=== PATIENT | female | born 1965 | race Two or more races ===

== ENCOUNTER 2025-02-03 20:23 | Inpatient (IN) | payer MEDICAID, OTHER ==
[~2025-02-03] VITALS: Ht 160 cm; Wt 55.8 kg
[2025-02-03 21:30] LABS: PLATELET COUNT (AUTO) 155 K/uL (150-450); RED BLOOD CELL COUNT(AUTO) 3.85 MIL/uL (4.0-5.2); RED CELL DISTRIBUTION WIDTH 13.9 % (11.5-15.0); WHITE BLOOD COUNT (AUTO) 2.8 K/uL (4.3-11.0)
[2025-02-03 21:36] LABS: CALCIUM, SERUM 8.9 mg/dL (8.5-10.1); CREATININE 0.6 mg/dL (0.6-1.3); SODIUM SERUM 139 mmol/L (136-145); UREA NITROGEN, BLOOD 12 mg/dL (7-18)
[2025-02-03 21:43] LABS: ALCOHOL, BLOOD < 3 mg/dL (0-10); ASPARTATE AMINOTRANSFERASE 28 U/L (15-37); TOTAL PROTEIN, SERUM 6.6 g/dL (6.4-8.2)
[2025-02-03 22:19] LABS: APPEARANCE,URINE CLEAR (CLEAR); BLOOD, URINE NEGATIVE Ery/uL (NEGATIVE); LEUKOCYTE ESTERASE ,URINE TRACE (NEGATIVE); NITRITE, URINE NEGATIVE (NEGATIVE); UGLUCOSE NEGATIVE (NEGATIVE)
[2025-02-03 22:26] LABS: ADD URINE CULTURE YES; AMPHETAMINE, URINE NEGATIVE (NEGATIVE); BARBITURATE, URINE NEGATIVE (NEGATIVE); BENZODIAZEPINE, URINE NEGATIVE (NEGATIVE); CANNABINOID, URINE NEGATIVE (NEGATIVE); COCCAINE, URINE NEGATIVE (NEGATIVE); OPIATE, URINE NEGATIVE (NEGATIVE)
[2025-02-03 22:27] LABS: SQUAMOUS EPITHELIAL CELL,UR Few /HPF (None Seen)
[2025-02-03] MEDS ORDERED: DULO60CA64 PO (22:27)
[2025-02-03] MEDS ORDERED: PREG-58 PO (22:27)
[2025-02-03] MEDS ORDERED: ASPI-1169 PO (22:27)
[2025-02-03] MEDS ORDERED: APIX5TAB PO (22:27)
[2025-02-03] MEDS ORDERED: PANT20TA17 PO (22:27)
[2025-02-03] MEDS ORDERED: ATOR40TA PO (22:27)
[2025-02-03] MEDS ORDERED: DONE10TA44 PO (22:27)
[2025-02-03 23:15] VITALS: BP 110/58; TEMP 97.5; O2SAT 96
[2025-02-03] MEDS ORDERED: LORAZEPAM 1 MG TABLET PO PRN (23:30)
[2025-02-03] MEDS ORDERED: MAGNESIUM HYDROXIDE 30 ML UDC PO PRN (23:30)
[2025-02-03] MEDS ORDERED: ZOLPIDEM TARTRATE 5 MG TABLET PO PRN ×2 (23:30)
[2025-02-03] MEDS ORDERED: MAG HYDROX/AL HYDROX/SIMETH 30 ML UDC PO PRN (23:30)
[2025-02-03] MEDS ORDERED: LORAZEPAM 0.5 MG TABLET PO PRN (23:30)
[2025-02-04] MEDS: BLOOD SUGAR DIAGNOSTIC 1 EACH STRIP IN ONE (00:02)
[2025-02-04 07:42] LABS: ASPARTATE AMINOTRANSFERASE 29.0 U/L (15-37); CALCIUM, SERUM 9.0 mg/dL (8.5-10.1); CREATININE 0.7 mg/dL (0.6-1.3); SODIUM SERUM 138.0 mmol/L (136-145); TOTAL PROTEIN, SERUM 6.9 g/dL (6.4-8.2); UREA NITROGEN, BLOOD 10.0 mg/dL (7-18)
[2025-02-04 07:56] LABS: LDL 104 mg/dL (0-99)
[2025-02-04] MEDS: PANTOPRAZOLE 40 MG TABLET.DR PO SCH (08:30)
[2025-02-04] MEDS: PREGABALIN 25 MG CAPSULE PO SCH (08:30)
[2025-02-04] MEDS: ASPIRIN 81 MG TAB.CHEW PO SCH (08:30)
[2025-02-04] MEDS: ATORVASTATIN 40 MG TABLET PO SCH (08:30)
[2025-02-04] MEDS: APIXABAN 5 MG TABLET PO SCH (08:32)
[2025-02-04 08:40] VITALS: BP 99/61; TEMP 98.2; O2SAT 98
[2025-02-04] MEDS ORDERED: MYRBETRIQ PO (09:19)
[2025-02-04] MEDS ORDERED: QULIPTA PO (09:19)
[2025-02-04] MEDS ORDERED: HYDR200T4 PO (09:19)
[2025-02-04] MEDS: DULOXETINE HCL 30 MG CAPSULE.DR PO SCH (11:01)
[2025-02-04 16:00] VITALS: BP 90/63; TEMP 99; O2SAT 96
[2025-02-04 20:00] VITALS: BP 90/61; TEMP 98; O2SAT 99
[2025-02-04] MEDS: ACETAMINOPHEN 325 MG TABLET PO PRN (20:29)
[2025-02-04] MEDS: QUETIAPINE FUMARATE 25 MG TABLET PO SCH (21:13)
[2025-02-05 08:00] VITALS: BP 107/65; TEMP 98.1; O2SAT 98
[2025-02-05 16:00] VITALS: BP 96/66; TEMP 98.2; O2SAT 97
[2025-02-05] MEDS ORDERED: HYDROCODONE/APAP 10/325MG TABLET PO PRN (19:30)
[2025-02-05 20:06] VITALS: BP 92/63; TEMP 97.9; O2SAT 97
[2025-02-05] MEDS: OLANZAPINE 2.5 MG TABLET PO SCH (21:02)
[2025-02-06 08:00] VITALS: BP 90/71; TEMP 99; O2SAT 100
[2025-02-06] MEDS: DOCUSATE SODIUM 100 MG CAPSULE PO SCH (10:06)
[2025-02-06 16:55] VITALS: BP 101/69; TEMP 97.7; O2SAT 100
[2025-02-06 20:49] VITALS: BP 114/83; TEMP 98.2; O2SAT 98
== END 2025-02-06 23:59 | disposition home or self-care (01) | DRG 750 ==
LOC: ER 20:35 → GPS 22:41
PROVIDERS: ADMIT Psychiatry & Neurology Psychiatry; ATTEND Nurse Practitioner Family
DX: F33.3 Major depressive disorder, recurrent, severe with psychotic symptoms (principal); D63.8 Anemia in other chronic diseases classified elsewhere; Z79.01 Long term (current) use of anticoagulants; F29 Unspecified psychosis not due to a substance or known physiological condition; E78.5 Hyperlipidemia, unspecified; R45.851 Suicidal ideations; F39 Unspecified mood [affective] disorder; Z86.711 Personal history of pulmonary embolism; I48.91 Unspecified atrial fibrillation; Z20.822 Contact with and (suspected) exposure to COVID-19
CPT/HCPCS: 36415; 70450-TC; 80048-TC; 80053-TC; 80061-TC; 80076-TC; 81001; 82962-TC; 85025-TC; 87081-TC; 87086-TC; 97110-TC; 97116-TC; 97530-TC; G0480

== ENCOUNTER 2025-02-07 | Inpatient (IN) | payer MEDICAID, OTHER ==
[2025-02-07] VITALS (8 sets, daily range): BP systolic 87–122; BP diastolic 51–76; TEMP 97.5–98.4; O2SAT 96–100
[~2025-02-07] VITALS: Ht 162.6 cm; Wt 60.3 kg
[~2025-02-07] MED LIST: APIX5TAB PO; ATOR40TA PO; DONE10TA44 PO; DULO60CA64 PO; HYDR200T4 PO; MYRBETRIQ PO; PANT20TA17 PO; PREG-58 PO; QULIPTA PO
--- NOTE | 2025-02-07 00:39 | NUR ---
RN OPENING NOTE *MED SURG RECEIVED PT FROM [facility] STAFF @0015 VIA CHAIR. PT IS A/O X3-4 AND DOES WELL COMMUNICATING NEEDS. PT ON ROOM AIR AND HAS NO S/S OF SOB OR DIFFICULTY BREATHING NOTED AT THIS TIME. NO IV ACCESS NOTED AT THIS TIME PT HAD CAME FROM THE [facility] UNIT TO MED SURG. SKIN ASSESSMENT COMPLETED WHICH NO WOUNDS NOTED/ NO PICTURES TAKEN. PT BELONGINGS ALSO ALL COUNTED AND CHECKED. PT UNDERSTANDS PLAN OF CARE AND ORIENTED TO ROOM. PT ALSO EDUCATED ON HOW TO USE CALL LIGHT WHICH BOTH THE CALL LIGHT AND TABLE ARE WITHIN REACH. SAFETY MEASURES IN PLACE WITH BED IN LOWEST POSITION LOCKED AND SIDE RAILS UP X2; BED ALARM ALSO ON. WILL CONTINUE WITH PLAN OF CARE. Addendum: 02/07/25 at 0102 by JESUS KATE RN CORRECTION: PT WILL BE TELEMETRY, TELE MONITOR PLACED AND PT READING STEFAN 53.
[2025-02-07] MEDS ORDERED: ACETAMINOPHEN 325 MG TABLET PO PRN (01:00)
[2025-02-07] MEDS ORDERED: ONDANSETRON HCL/PF 4 MG/2 ML VIAL IVP PRN (01:00)
[2025-02-07] MEDS ORDERED: MAGNESIUM HYDROXIDE 30 ML UDC PO PRN (01:00)
[2025-02-07] MEDS ORDERED: MAG HYDROX/AL HYDROX/SIMETH 30 ML UDC PO PRN (01:00)
[2025-02-07] MEDS: IV NS 0.9% 1,000 ML IV PRN (02:33)
--- NOTE | 2025-02-07 06:52 | NUR ---
RN CLOSING NOTE *TELE PT IN BED RESTING AT THIS TIME; PT TRYING TO SLEEP. PT IS A/O X3-4 AND HAS BEEN COOPERATIVE THROUGHOUT THE SHIFT. PT IS ON TELE READING STEFAN 59- SR 60s. PT ON ROOM AIR WITH NO S/S OF SOB NOTED. PT IV ACCESS LOCATED ON THE RIGHT HAND GAUGE 22 IS INFUSING WITH NS @75 ML/HR AND IS PATENT/INTACT. PT THROUGHOUT SHIFT HAS BEEN CLOSELY MONITORED HEART RATE HAS BEEN FLUCTUATING ON THE LOWER SIDE. PT REMAINED STABLE THROUGHOUT SHIFT AND WAS REGULARLY CHECKED ON; WHEN CHECKED ON PT AWAKE AND ALERT. PT HAD BRP WITH ASSISTANCE AND DID WELL AMBULATING. ALL NEEDS CARED FOR AND PT IS COMFORTABLE IN BED. SAFETY MEASURES IN PLACE WITH SIDE RAILS UP X2 AND BED LOCKED IN LOWEST POSITION. WILL ENDORSE TO NEXT NURSE.
[2025-02-07 06:53] LABS: PLATELET COUNT (AUTO) 150 K/uL (150-450); RED BLOOD CELL COUNT(AUTO) 3.67 MIL/uL (4.0-5.2); RED CELL DISTRIBUTION WIDTH 14.2 % (11.5-15.0); WHITE BLOOD COUNT (AUTO) 2.5 K/uL (4.3-11.0)
[2025-02-07 06:56] LABS: CALCIUM, SERUM 8.7 mg/dL (8.5-10.1); CREATININE 0.6 mg/dL (0.6-1.3); SODIUM SERUM 145 mmol/L (136-145); UREA NITROGEN, BLOOD 9 mg/dL (7-18)
[2025-02-07 07:02] LABS: INR 1.04 (0.91-1.10)
[2025-02-07 07:09] LABS: ASPARTATE AMINOTRANSFERASE 24 U/L (15-37); PHOSPHORUS 4.2 mg/dL (2.5-4.9); TOTAL PROTEIN, SERUM 6.3 g/dL (6.4-8.2)
--- NOTE | 2025-02-07 07:20 | NUR ---
RN OPENING NOTES RECEIVED PATIENT AWAKE IN BED. A/O X3-4.ON ROOM AIR SATURATING WELL. NO SIGNS OR SYMPTOMS OF RESPIRATORY DISTRESS NOTED.WITH IV ACCESS AT RIGHT HAND G# 22 INTACT,PATENT WITH INFUSING NS @ 75 ML/HR.ON CUSTODY OFFICER WITH READING OF SB 57BPM. SAFETY MEASURES IN PLACED; BED IN LOWEST AND LOCKED POSITION, CALL LIGHT AND TRAY TABLE WITHIN EASY REACH, SIDE RAILS UP X3.PLAN OF CARE ONGOING.
[2025-02-07] MEDS: PANTOPRAZOLE 40 MG TABLET.DR PO SCH (08:04)
[2025-02-07] MEDS: ENOXAPARIN SODIUM 40 MG/0.4 ML DISP.SYRIN SQ SCH (08:05)
[2025-02-07] MEDS ORDERED: Medication Not On Formulary EA ([Myrbetriq] 25 MG) PO SCH (09:00)
[2025-02-07] MEDS: PREGABALIN 25 MG CAPSULE PO SCH (09:17)
[2025-02-07] MEDS: HYDROXYCHLOROQUINE 200 MG TABLET PO SCH (09:18)
[2025-02-07 10:40] LABS: IRON, SERUM 44 ug/dl (50-175)
[2025-02-07 10:54] LABS: LDL 82 mg/dL (0-99)
[2025-02-07] MEDS: APIXABAN 5 MG TABLET PO SCH (16:10)
--- NOTE | 2025-02-07 18:49 | NUR ---
RN CLOSING NOTES PATIENT RESTING IN BED. A/O X3-4.ON ROOM AIR SATURATING WELL. NO SIGNS OR SYMPTOMS OF RESPIRATORY DISTRESS NOTED.WITH IV ACCESS AT RIGHT HAND G# 22 INTACT,PATENT WITH INFUSING NS @ 75 ML/HR.ON APPLICATIONS TESTER WITH READING OF SR 71BPM. SAFETY MEASURES IN PLACED; BED IN LOWEST AND LOCKED POSITION, CALL LIGHT AND TRAY TABLE WITHIN EASY REACH, SIDE RAILS UP X3.PLAN OF CARE ONGOING. ALL DUE MEDICATIONS GIVEN. ALL NEEDS ATTENDED.KEPT PATIENT WARM AND COMFORTABLE.
--- NOTE | 2025-02-07 19:30 | NUR ---
COLLEGE COACH OPENING NOTES RECEIVED PT IN BED, AWAKE, A/OX 3, ABLE TO MAKE NEEDS KNOWN. PT ON ROOM AIR WITH RESPIRATIONS EVEN AND UNLABORED. ON TELE MONITORING WITH CURRENT READING OF SR 67. IV ACCESS AT R HAND 22G, INFUSING WELL WITH NS @ 75ML/HR. PT DENIES PAIN OR ANY DISTRESS AT THIS TIME. NEEDS ATTENDED. SAFETY PRECAUTIONS IN PLACED: BED AT LOWEST AND LOCKED POSITION, SIDE RAILS UP X3, BED ALARM ON, CALL LIGHT BUTTON AND TABLE WITHIN REACH. PLAN OF CARE ONGOING -
[2025-02-07] MEDS: DONEPEZIL 5 MG TABLET PO SCH (21:19)
[2025-02-07] MEDS: ATORVASTATIN 40 MG TABLET PO SCH (21:19)
[2025-02-08] VITALS: BP 102/79; TEMP 97.5; O2SAT 100
[2025-02-08 04:00] VITALS: BP 102/73; TEMP 97.5; TEMP 98.2; O2SAT 97; O2SAT 99
--- NOTE | 2025-02-08 07:01 | NUR ---
CELL CHANGER CLOSING NOTES PT IN BED, AWAKE. PT A/OX3. REMAINED STABLE ON ROOM AIR. TELE MONITORING READS SR 60S WITH EPISODES OF BRADYCARDIA LOWEST SEEN IS 38 WHEN DEEP SLEEP, NO S/S. PT REMAINED STABLE THROUGHOUT THE SHIFT. PT BRP WITH WALKER X 3, NO BM. IV ACCESS INFUSING WELL WITH NS @ 75ML/HR. ALL DUE MEDS GIVEN, ALL NEEDS ATTENDED. KEPT PT CLEAN AND DRY. SAFETY PRECAUTIONS MAINTAINED. ENDORSED TO AM NURSE FOR EVONNE
[2025-02-08] MEDS ORDERED: PANTOPRAZOLE 40 MG TABLET.DR PO SCH (07:30)
--- NOTE | 2025-02-08 07:30 | NUR ---
BIRD KEEPER OPENING NOTES RECEIVED PT IN BED, AWAKE, IN SEMI-VARELA POSITION. ON ROOM AIR, BREATHING EVEN AND UNLABORED, AND NO INDICATION OF ACUTE RESPIRATORY DISTRESS NOTED. A/OX 3, ABLE TO MAKE NEEDS KNOWN AND CAN FOLLOW COMMANDS EASILY CONTINUE ON TELE MONITORING WITH CURRENT READING OF SB 57BPM. IV ACCESS AT R HAND 22G, INFUSING WELL WITH NS @ 75ML/HR. SAFETY PRECAUTIONS IN PLACED: BED AT LOWEST AND LOCKED POSITION, SIDE RAILS UP X3, BED ALARM ON, CALL LIGHT BUTTON AND TABLE WITHIN REACH OF PT. PLAN OF CARE ONGOING -
[2025-02-08 07:48] LABS: PLATELET COUNT (AUTO) 143 K/uL (150-450); RED BLOOD CELL COUNT(AUTO) 3.40 MIL/uL (4.0-5.2); RED CELL DISTRIBUTION WIDTH 14.3 % (11.5-15.0); WHITE BLOOD COUNT (AUTO) 2.7 K/uL (4.3-11.0)
[2025-02-08 08:00] VITALS: BP 94/62; TEMP 98.4; O2SAT 100
[2025-02-08 08:25] LABS: CALCIUM, SERUM 8.3 mg/dL (8.5-10.1); CREATININE 0.6 mg/dL (0.6-1.3); PHOSPHORUS 4.2 mg/dL (2.5-4.9); SODIUM SERUM 144.0 mmol/L (136-145); UREA NITROGEN, BLOOD 9.0 mg/dL (7-18)
[2025-02-08] MEDS: LORAZEPAM 1 MG TABLET PO PRN (10:50)
[2025-02-08 11:47] VITALS: BP 117/72; TEMP 97.9; O2SAT 99
--- NOTE | 2025-02-08 14:25 | NUR ---
MR RN DC NOTE TO [facility]: TRANSFERED PT TO [facility] IN STABLE CONDITION VIA WHEELCHAIR . VS STABLE PRIOR TO DC. ALL BELONGINGS TOOK BY PT'S SISTER TO HOME.IV REMOVED. REPORT GIVEN TO VERÓNICA BOYD .
[2025-02-10] MEDS ORDERED: OLAN2.5T3 PO (10:24)
[2025-02-10] MEDS ORDERED: VENL37.55 PO (10:24)
== END 2025-02-08 14:45 | DRG 204 ==
LOC: MED → TELE 01:20
PROVIDERS: ADMIT Nurse Practitioner Acute Care; ATTEND Nurse Practitioner Acute Care
DX: R55 Syncope and collapse (principal); E44.1 Mild protein-calorie malnutrition; F33.3 Major depressive disorder, recurrent, severe with psychotic symptoms; D63.8 Anemia in other chronic diseases classified elsewhere; E88.09 Other disorders of plasma-protein metabolism, not elsewhere classified; F03.92 Unspecified dementia, unspecified severity, with psychotic disturbance; F29 Unspecified psychosis not due to a substance or known physiological condition; Z79.01 Long term (current) use of anticoagulants; E03.9 Hypothyroidism, unspecified; E78.5 Hyperlipidemia, unspecified; I48.91 Unspecified atrial fibrillation; I25.10 Atherosclerotic heart disease of native coronary artery without angina pectoris; Z86.711 Personal history of pulmonary embolism; R45.851 Suicidal ideations; F39 Unspecified mood [affective] disorder; Z68.22 Body mass index [BMI] 22.0-22.9, adult; F03.93 Unspecified dementia, unspecified severity, with mood disturbance
CPT/HCPCS: 36415; 71045-TC; 80048-TC; 80061-TC; 80076-TC; 82728-TC; 83540-TC; 83735-TC; 83880; 84100-TC; 84439-TC; 84443-TC; 84484-TC; 85025-TC; 85610-TC; 93307-TC; 93880-TC; 97110-TC; 97116-TC; 97530-TC; A4223; G0378; J1650; J7030

== ENCOUNTER 2025-02-08 11:53 | Inpatient (IN) | payer MEDICAID, OTHER ==
[~2025-02-08] VITALS: Ht 162.6 cm; Wt 59.9 kg
[2025-02-08 16:11] VITALS: BP 91/66; TEMP 98; O2SAT 96
[2025-02-08] MEDS: PREGABALIN 25 MG CAPSULE PO SCH (16:47)
[2025-02-08] MEDS: APIXABAN 5 MG TABLET PO SCH (16:48)
[2025-02-08 21:00] VITALS: BP 114/70; TEMP 97.8; O2SAT 100
[2025-02-08] MEDS: ATORVASTATIN 40 MG TABLET PO SCH (21:22)
[2025-02-08] MEDS: DONEPEZIL 5 MG TABLET PO SCH (21:22)
[2025-02-08] MEDS ORDERED: MAGNESIUM HYDROXIDE 30 ML UDC PO PRN (22:30)
[2025-02-08] MEDS ORDERED: MAG HYDROX/AL HYDROX/SIMETH 30 ML UDC PO PRN (22:30)
[2025-02-08] MEDS ORDERED: ZOLPIDEM TARTRATE 5 MG TABLET PO PRN ×2 (22:30)
[2025-02-08] MEDS: BLOOD SUGAR DIAGNOSTIC 1 EACH STRIP IN ONE (22:46)
[2025-02-08] MEDS: LORAZEPAM 1 MG TABLET PO PRN (22:46)
[2025-02-09] MEDS: ACETAMINOPHEN 325 MG TABLET PO PRN (04:59)
[2025-02-09] MEDS: PANTOPRAZOLE 40 MG TABLET.DR PO SCH (06:39)
[2025-02-09 08:00] VITALS: BP 98/69; TEMP 97.8; O2SAT 100
[2025-02-09] MEDS ORDERED: Medication Not On Formulary EA ([Myrbetriq] 25 MG) PO SCH (09:00)
[2025-02-09] MEDS: HYDROXYCHLOROQUINE 200 MG TABLET PO SCH (09:01)
[2025-02-09] MEDS: VENLAFAXINE XR 37.5 MG CAP.SR.24H PO SCH (11:42)
[2025-02-09 16:00] VITALS: BP 100/74; TEMP 97.3; O2SAT 99
[2025-02-09 20:29] VITALS: BP 129/84; TEMP 97.8; O2SAT 100
[2025-02-09] MEDS: OLANZAPINE 2.5 MG TABLET PO SCH (21:54)
[2025-02-09] MEDS: LORAZEPAM 0.5 MG TABLET PO PRN (21:55)
[2025-02-10 08:00] VITALS: BP 95/62; TEMP 97.8; O2SAT 94
[2025-02-10] MEDS ORDERED: VENL37.55 PO (10:24)
[2025-02-10] MEDS ORDERED: OLAN2.5T3 PO (10:24)
[2025-02-10 15:05] VITALS: O2SAT 99
== END 2025-02-10 15:15 | disposition home or self-care (01) | DRG 750 ==
LOC: GPS 11:53
PROVIDERS: ADMIT Psychiatry & Neurology Psychiatry; ATTEND Nurse Practitioner Acute Care
DX: F33.3 Major depressive disorder, recurrent, severe with psychotic symptoms (principal); D63.8 Anemia in other chronic diseases classified elsewhere; Z79.01 Long term (current) use of anticoagulants; F29 Unspecified psychosis not due to a substance or known physiological condition; I10 Essential (primary) hypertension; E03.9 Hypothyroidism, unspecified; F03.93 Unspecified dementia, unspecified severity, with mood disturbance; F39 Unspecified mood [affective] disorder; E78.5 Hyperlipidemia, unspecified; I48.91 Unspecified atrial fibrillation; F41.9 Anxiety disorder, unspecified; F03.94 Unspecified dementia, unspecified severity, with anxiety; Z86.711 Personal history of pulmonary embolism; Z73.6 Limitation of activities due to disability; I25.10 Atherosclerotic heart disease of native coronary artery without angina pectoris
CPT/HCPCS: 97110-TC; 97116-TC; 97530-TC